=== PATIENT | male | born 1980 | race Caucasian/White ===

== ENCOUNTER 2017-04-11 08:30 | Emergency (ER) | payer SELFPAY ==
[2017-04-11 08:48] VITALS: BP 120/80
--- NOTE | 2017-04-11 09:43 | EDM.PDOC ---
ED HPI GENERAL MEDICAL PROBLEM - General Chief Complaint: General Stated Complaint: FLU/BODY ACHES/HEADACHE/CHILLS Time Seen by Provider: 04/11/17 09:25 Source of Information: Reports: Patient History Limitations: Reports: No Limitations - History of Present Illness INITIAL COMMENTS - FREE TEXT/NARRATIVE: Has been having body aches and fevers for several days. "My whole body hurts all over" No vomiting or diarrhea noted. Has been trying to drink fluids. has tested positive for influenza A this morning. Onset: Gradual Duration: Getting Worse Location: Reports: Generalized Quality: Reports: Ache Associated Symptoms: Reports: Cough, Loss of Appetite, Weakness. Denies: Nausea /Vomiting, Shortness of Breath Generalized Pain Score (Numeric/FACES): 8 - Related Data Allergies Allergy/AdvReac Type Severity Reaction Status Date / Time No Known Allergies Allergy Verified 04/11/17 08:49 Home Meds: Home Meds . [No Known Home Meds] 04/11/17 [History] Past Medical History - Past Health History Medical/Surgical History: Denies Medical/Surgical History HEENT History: Reports: None Cardiovascular History: Reports: None Respiratory History: Reports: None Musculoskeletal History: Reports: Other (See Below) Other Musculoskeletal History: Chronic bilateral shoulder pain-Treatment Olman Sparrow PA-C Neurological History: Reports: None Psychiatric History: Reports: None Dermatologic History: Reports: None Social & Family History - Tobacco Use Smoking Status *Q: Current Every Day Smoker Years of Tobacco use: 20 Packs/Tins Daily: 0.5 - Caffeine Use Caffeine Use: Reports: Soda - Recreational Drug Use Recreational Drug Use: No ED ROS GENERAL - Review of Systems Review Of Systems: See Below Constitutional: Reports: Fever, Chills, Weakness, Diaphoresis HEENT: Reports: No Symptoms Respiratory: Reports: Cough. Denies: Shortness of Breath Cardiovascular: Reports: No Symptoms GI/Abdominal: Denies: Abdominal Pain, Diarrhea, Nausea, Vomiting : Reports: No Symptoms Musculoskeletal: Reports: Back Pain, Muscle Stiffness Skin: Reports: No Symptoms ED EXAM, GENERAL - Physical Exam Exam: See Below Exam Limited By: No Limitations General Appearance: Alert, Moderate Distress Eye Exam: Bilateral Eye: PERRL Ears: Normal External Exam, Normal Canal, Normal TMs Nose: Normal Inspection Throat/Mouth: Normal Inspection, Normal Oropharynx, Normal Voice Head: Atraumatic, Normocephalic Neck: Normal Inspection, Supple, Non-Tender, Full Range of Motion Respiratory/Chest: No Respiratory Distress, Lungs Clear, Normal Breath Sounds, Chest Non-Tender Cardiovascular: Regular Rate, Rhythm, No Edema GI/Abdominal: Normal Bowel Sounds, Soft, Non-Tender, No Organomegaly Back Exam: Normal Inspection, Full Range of Motion Extremities: Normal Range of Motion, Non-Tender, Normal Capillary Refill Neurological: Alert, Oriented Skin Exam: Warm, Dry, Intact Course - Vital Signs Last Recorded V/S: Last Vital Signs Temp 99.1 F 04/11/17 08:35 Pulse 105 H 04/11/17 08:35 Resp 20 04/11/17 08:35 BP 120/80 04/11/17 08:35 Pulse Ox 98 04/11/17 08:35 Departure - Departure Time of Disposition: 09:41 Disposition: Home, Self-Care 01 Condition: Good Clinical Impression: Exposure to influenza - Discharge Information Referrals: PCP,None [Primary Care Provider] - Forms: ED Department Discharge Additional Instructions: Push fluids as much as possible Tylenol alternating with advil as needed for fever or chills or body aches Tamiflu 75 mg twice a day for 5 days - Problem List & Annotations (1) Exposure to influenza SNOMED Code(s): 254677753 Code(s): Z20.828 - CONTACT W AND EXPOSURE TO OTH VIRAL COMMUNICABLE DISEASES Status: Acute Priority: High Current Visit: Yes - Problem List Review Problem List Initiated/Reviewed/Updated: Yes
== END 2017-04-11 09:50 | disposition home or self-care (01) ==
LOC: CC.ED 08:30
DX: Z20.828 Contact with and (suspected) exposure to other viral communicable diseases (principal); F17.210 Nicotine dependence, cigarettes, uncomplicated
CPT/HCPCS: 87804; 99283

== ENCOUNTER 2018-03-11 10:11 | Emergency (ER) | payer MEDICAID ==
[2018-03-11 10:29] VITALS: BP 138/89
[2018-03-11] MEDS ORDERED: Iopamidol 612 MG/ML 100 ML Bottle IVPUSH ONE (11:09)
[2018-03-11 11:30] LABS: CHLORIDE,CL 104 mEq/L (98-106); SODIUM,NA 141 mEq/L (136-145)
--- NOTE | 2018-03-11 12:57 | EDM.PDOC ---
ED HPI GENERAL MEDICAL PROBLEM - General Chief Complaint: Genitourinary Problem Stated Complaint: ?HERNIA Time Seen by Provider: 03/11/18 10:15 Source of Information: Reports: Patient History Limitations: Reports: No Limitations - History of Present Illness INITIAL COMMENTS - FREE TEXT/NARRATIVE: Junior is a 37 yo male who presents to the ED via private vehicle with complaints of abdominal/groin pain. He states he thinks he has a hernia. Initially symptoms started yesterday evening on his way home from work and lasted about 20 minutes and it went away. He states today he was getting out of the car and experienced 10/10 pain that started in his lower abdomen. States it radiated down into his left groin and into his perineum. States he was trying to walk in the grocery store and it seemed to make things worse. He admits if he sits still it subsides. States the pain comes in waves and when it does it is intense. Bowel movements have been normal with last one yesterday evening. Denies any constipation or diarrhea. States no urinary complaints initially. However, after reevaluation he does admit when he urinated for the urinalysis he had some discomfort and now feels as if he is sitting on a tennis ball. Left Groin Pain Score (Numeric/FACES): 10 - Related Data Allergies Allergy/AdvReac Type Severity Reaction Status Date / Time No Known Allergies Allergy Verified 03/11/18 10:22 Home Meds: Home Meds Acetaminophen [Tylenol Arthritis] 2 tab PO TID PRN 03/11/18 [History] Naproxen Sodium [Aleve] 220 mg PO DAILY PRN 03/11/18 [History] Ranitidine HCl [Zantac 75] 75 mg PO BID 03/11/18 [History] Past Medical History - Past Health History Medical/Surgical History: Denies Medical/Surgical History HEENT History: Reports: None Cardiovascular History: Reports: None Respiratory History: Reports: None Genitourinary History: Reports: Other (See Below) Other Genitourinary History: hx of Hernia Musculoskeletal History: Reports: Other (See Below) Other Musculoskeletal History: Chronic bilateral shoulder pain-Treatment Olman Sparrow PA-C Neurological History: Reports: None Psychiatric History: Reports: None Endocrine/Metabolic History: Reports: None Dermatologic History: Reports: None - Infectious Disease History Infectious Disease History: Reports: None - Past Surgical History Endocrine Surgical History: Reports: None Social & Family History - Family History Family Medical History: Noncontributory - Tobacco Use Smoking Status *Q: Current Every Day Smoker Years of Tobacco use: 25 Packs/Tins Daily: 0.5 - Caffeine Use Caffeine Use: Reports: Soda - Recreational Drug Use Recreational Drug Use: No ED ROS GENERAL - Review of Systems Review Of Systems: See Below Constitutional: Denies: Fever, Chills, Decreased Appetite HEENT: Reports: No Symptoms Respiratory: Reports: No Symptoms Cardiovascular: Reports: No Symptoms GI/Abdominal: Reports: Abdominal Pain. Denies: Bloody Stool, Constipation, Diarrhea, Decreased Appetite, Melena, Nausea, Vomiting : Denies: Discharge, Dysuria, Flank Pain, Urgency Skin: Reports: No Symptoms ED EXAM, GI/ABD - Physical Exam Exam: See Below Exam Limited By: No Limitations General Appearance: Alert, No Apparent Distress Ears: Normal External Exam, Hearing Grossly Normal Nose: Normal Inspection, No Blood Throat/Mouth: Normal Inspection, Normal Voice, No Airway Compromise Head: Atraumatic, Normocephalic Neck: Normal Inspection Respiratory/Chest: No Respiratory Distress, Lungs Clear, Normal Breath Sounds, No Accessory Muscle Use Cardiovascular: Regular Rate, Rhythm, No Murmur GI/Abdominal Exam: Normal Bowel Sounds, Soft, No Organomegaly, No Distention, No Mass, Tender (Male) Exam: Circumcised, Other (Patient refused prostate exam. ). No: Scrotum Tenderness (L), Scrotum Tenderness (R), Testicular Tenderness (L), Testicular Tenderness (R) Rectal (Males) Exam: Deferred (per patient ) Back Exam: No: CVA Tenderness (L), CVA Tenderness (R) Neurological: Alert, Oriented, Normal Cognition Psychiatric: Normal Affect, Normal Mood Skin Exam: Warm, Dry, Intact, Normal Color, No Rash Course - Vital Signs Last Recorded V/S: Last Vital Signs Temp 96.4 F 03/11/18 10:25 Pulse 95 03/11/18 10:25 Resp 20 03/11/18 10:25 BP 138/89 03/11/18 10:25 Pulse Ox 100 03/11/18 10:25 - Orders/Labs/Meds Orders: Active Orders 24 hr Category Date Time Status Abdomen Pelvis w Cont [CT] Stat Exams 03/11/18 11:03 Taken Labs: Laboratory Tests 03/11/18 03/11/18 03/11/18 Range/Units 11:03 11:03 11:10 WBC 7.4 (5.0-10.0) 10^3/uL RBC 5.19 (4.50-6.00) 10^6/uL Hgb 13.8 L (14.0-18.0) g/dL Hct 42.2 (40.0-54.0) % MCV 81.3 L (82.0-94.0) fL MCH 26.6 L (27.0-32.0) pg MCHC 32.7 L (33.0-38.0) g/dL RDW Coeff of Christine 13.6 (11.0-15.0) % Plt Count 218 (150-400) 10^3/uL Neut % (Auto) 55.4 (35-85) % Lymph % (Auto) 31.3 (10-55) % [place] % (Auto) 7.7 (0-16) % Eos % (Auto) 5.2 H (0-5) % Baso % (Auto) 0.4 (0-3) % Neut # (Auto) 4.08 (1.80-7.00) 10^3/uL Lymph # (Auto) 2.31 (1.00-4.80) 10^3/uL [place] # (Auto) 0.57 (0.00-0.80) 10^3/uL Eos # (Auto) 0.38 (0.00-0.45) 10^3/uL Baso # (Auto) 0.03 10^3/uL Sodium 141 (136-145) mEq/L Potassium 4.1 (3.5-5.0) mEq/L Chloride 104 (98-106) mEq/L Carbon Dioxide 28 (21-32) mmol/L BUN 20 H (7-18) mg/dL Creatinine 1.0 (0.7-1.3) mg/dL Est Cr Clr Drug Dosing 95.95 mL/min Estimated GFR (MDRD) > 60 (>=60) mL/min Glucose 102 H (75-99) mg/dL Calcium 9.2 (8.4-10.1) mg/dL Total Bilirubin 0.3 (0.0-1.0) mg/dL AST 26 (15-37) U/L ALT 48 (12-78) U/L Alkaline Phosphatase 80 (46-116) U/L C-Reactive Protein < 0.2 L (0.2-0.8) mg/dL Total Protein 7.8 (6.4-8.2) g/dL Albumin 4.1 (3.4-5.0) g/dL Urine Color Yellow (YELLOW) Urine Appearance Clear (CLEAR) Urine pH 5.5 (4.5-8.0) Ur Specific Peck >= 1.030 H (1.003-1.020) Urine Protein Negative (NEGATIVE) mg/dL Urine Glucose (UA) Negative (NEGATIVE) mg/dL Urine Ketones Negative (NEGATIVE) mg/dL Urine Occult Blood Negative (NEGATIVE) Urine Nitrite Negative (NEGATIVE) Urine Bilirubin Negative (NEGATIVE) Urine Urobilinogen 0.2 (0.2-1.0) EU/dL Ur Leukocyte Esterase Negative (NEGATIVE) Urine RBC Not seen (0-5) /HPF Urine WBC 0-5 (0-5) /HPF Urine Bacteria Occasional H (NOT SEEN) /HPF Urine Mucus Few H (NOT SEEN) /HPF Meds: Medications Discontinued Medications Generic Name Dose Route Start Last Admin Trade Name Freq PRN Reason Stop Dose Admin Iopamidol 100 ml 03/11/18 11:09 Isovue-300 (61%) IVPUSH 03/11/18 11:10 ONETIME ONE Departure - Departure Time of Disposition: 13:00 Disposition: Home, Self-Care 01 Clinical Impression: Prostatitis - Discharge Information Instructions: Prostatitis, [id number] Referrals: PCP,None [Primary Care Provider] - Additional Instructions: 1) Will treat for prostatitis, Cipro 500mg twice a day for 14 days 2) Toradol 10mg every 8 hours as needed for discomfort 3) Push fluids 4) Recommend follow up in clinic after finishing antibiotic, if any worsening of symptoms, return sooner for reevaluation. 5) CT of the abdomen/pelvis showed no acute findings. However, large hiatal hernia noted (which is the cause of the reflux). Discuss treatment options with primary provider. 6) Medications called into [facility]. - Problem List & Annotations (1) Prostatitis SNOMED Code(s): 5482564 Code(s): N41.9 - INFLAMMATORY DISEASE OF PROSTATE, UNSPECIFIED Status: Acute Current Visit: Yes - My Orders Last 24 Hours: My Active Orders 03/11/18 11:03 Abdomen Pelvis w Cont [CT] Stat - Assessment/Plan Last 24 Hours: My Active Orders 03/11/18 11:03 Abdomen Pelvis w Cont [CT] Stat Plan: See additional instructions for details.
== END 2018-03-11 13:10 | disposition home or self-care (01) ==
LOC: CC.ED 10:11
DX: N41.9 Inflammatory disease of prostate, unspecified (principal); F17.210 Nicotine dependence, cigarettes, uncomplicated
CPT/HCPCS: 36415; 74177; 80053; 81001; 85025; 86140; 99284; Q9967

== ENCOUNTER 2020-10-27 06:11 | Emergency (ER) | payer MEDICAID ==
[2020-10-27 06:56] LABS: CHLORIDE,CL 100 mEq/L (98-106); SODIUM,NA 139 mEq/L (136-145)
--- NOTE | 2020-10-27 07:08 | EDM.PDOC ---
ED HPI GENERAL MEDICAL PROBLEM - General Chief Complaint: Back Pain or Injury Stated Complaint: back pain Time Seen by Provider: 10/27/20 06:40 Source of Information: Reports: Patient History Limitations: Reports: No Limitations - History of Present Illness INITIAL COMMENTS - FREE TEXT/NARRATIVE: Junior is a 40 year old male who presents to the ED with c/o right mid-upper posterior and anterior back pain. He reports pain started yesterday and has been constant since then. He reports he was unable to sleep through the night due to the pain, prompting presentation to the ED. He denies any SOB but does report pain is worsened by deep breathing and lying down. He denies any recent cold or cough. Denies any injury to the area. No other assiciated symptoms. Denies any known history of covid, but has never been tested for Covid. Onset Date: 10/26/20 Duration: Constant, Getting Worse Location: Reports: Chest, Back Quality: Reports: Sharp, Throbbing Severity: Moderate Improves with: Reports: None Worsens with: Reports: Breathing, Other (Lying flat) Associated Symptoms: Reports: No Other Symptoms. Denies: Confusion, Chest Pain, Cough, cough w sputum, Diaphoresis, Fever/Chills, Headaches, Loss of Appetite, Malaise, Nausea/Vomiting, Rash, Seizure, Shortness of Breath, Syncope, Weakness Treatments CHIP SEPARATOR: Reports: Acetaminophen, NSAIDS Middle Back Pain Score (Numeric/FACES): 6 - Related Data Allergies Allergy/AdvReac Type Severity Reaction Status Date / Time No Known Allergies Allergy Verified 10/27/20 06:15 Home Meds: Home Meds Acetaminophen [Tylenol Arthritis] 2 tab PO TID PRN 03/11/18 [History] Naproxen Sodium [Aleve] 220 mg PO DAILY PRN 03/11/18 [History] Acetaminophen/HYDROcodone [[place] 325-5 MG] 1 tab PO Q4H PRN #15 tab 10/27/20 [Rx] Apixaban [Eliquis] 5 mg PO BID #194 tablet 10/27/20 [Rx] Past Medical History - Past Health History Medical/Surgical History: Denies Medical/Surgical History HEENT History: Reports: None Cardiovascular History: Reports: None Respiratory History: Reports: None Genitourinary History: Reports: Other (See Below) Other Genitourinary History: hx of Hernia Musculoskeletal History: Reports: Other (See Below) Other Musculoskeletal History: Chronic bilateral shoulder pain-Treatment Olman Sparrow PA-C Neurological History: Reports: None Psychiatric History: Reports: None Endocrine/Metabolic History: Reports: None Dermatologic History: Reports: None - Infectious Disease History Infectious Disease History: Reports: None - Past Surgical History Endocrine Surgical History: Reports: None Social & Family History - Family History Family Medical History: No Pertinent Family History - Tobacco Use Tobacco Use Status *Q: Current Every Day Tobacco User Years of Tobacco use: 20 Packs/Tins Daily: 0.5 - Caffeine Use Caffeine Use: Reports: Coffee, Soda - Recreational Drug Use Recreational Drug Use: No ED ROS GENERAL - Review of Systems Review Of Systems: Comprehensive ROS is negative, except as noted in HPI. ED EXAM, UPPER BACK/NECK PAIN - Physical Exam Exam: See Below Exam Limited By: No Limitations General Appearance: Alert, WD/WN, No Apparent Distress Head Exam: Atraumatic, Normocephalic Neck Exam: Non-Tender, Full Range of Motion, Normal Alignment, Normal Inspection Cardiovascular/Respiratory: Regular Rate, Rhythm, No M/R/G, Normal Peripheral Pulses, No JVD, Normal Breath Sounds, No Respiratory Distress GI/Abdominal: Normal Bowel Sounds, Soft, Non-Tender, No Organomegaly, No Distention, No Abnormal Bruit, No Mass Back Exam: Normal Inspection, Full Range of Motion. No: CVA Tenderness (L), CVA Tenderness (R) Extremities: Normal Inspection, Normal Range of Motion, Non-Tender, No Pedal Edema, Normal Capillary Refill Neurologic: kiln mechanic II-XII nml As Tested, No Motor/Sensory Deficits, Alert, Normal Mood/Affect, Oriented x 3 Psychiatric: Normal Affect, Normal Mood Skin Exam: Normal Color, Warm/Dry Lymphatic: No Adenopathy Course - Vital Signs Last Recorded V/S: Last Vital Signs Temp 98.6 F 10/27/20 09:09 Pulse 112 H 10/27/20 09:09 Resp 20 10/27/20 09:09 BP 128/65 10/27/20 09:09 Pulse Ox 97 10/27/20 09:09 - Orders/Labs/Meds Orders: Active Orders 24 hr Category Date Time Status Abdomen 2V AP Flat Upright [CR] Stat Exams 10/27/20 07:08 Taken Chest 2V [CR] Stat Exams 10/27/20 06:19 Taken Chest PE [Ang Chest] [CT] Stat Exams 10/27/20 07:08 Taken Labs: Laboratory Tests 10/27/20 10/27/20 10/27/20 Range/Units 06:30 06:30 06:30 WBC 10.9 (4.0-11.0) 10^3/uL RBC 4.89 (4.50-6.00) x10^6/uL Hgb 10.2 L (14.0-18.0) g/dL Hct 34.1 L (42.0-52.0) % MCV 69.7 L (83.0-97.0) fL MCH 20.9 L (27.0-32.0) pg MCHC 29.9 L (32.0-36.0) g/dL RDW Coeff of Christine 15.7 H (11.0-15.0) % Plt Count 314 (150-400) 10^3/uL Immature Gran % (Auto) 0.2 (0.0-4.9) % Neut % (Auto) 71.1 H (41-71) % Lymph % (Auto) 15.8 L (24-44) % [place] % (Auto) 9.9 (0-10) % Eos % (Auto) 2.7 (0-6) % Baso % (Auto) 0.3 (0-1) % Neut # (Auto) 7.72 (1.80-8.00) x10^3/uL Lymph # (Auto) 1.72 (0.60-5.00) 10^3/uL [place] # (Auto) 1.08 (0.00-1.50) 10^3/uL Eos # (Auto) 0.29 (0.00-1.50) 10^3/uL Baso # (Auto) 0.03 (0.00-0.50) 10^3/uL Immature Gran # (Auto) 0.02 (0.00-0.49) 10^3/uL D-Dimer, Quantitative 1.25 H (0.00-0.50) Sodium 139 (136-145) mEq/L Potassium 4.3 (3.5-5.0) mEq/L Chloride 100 (98-106) mEq/L Carbon Dioxide 28 (21-32) mmol/L BUN 13 (7-18) mg/dL Creatinine 1.0 (0.7-1.3) mg/dL Est Cr Clr Drug Dosing 93.10 mL/min Estimated GFR (MDRD) > 60 (>=60) mL/min Glucose 111 H (75-99) mg/dL Calcium 8.8 (8.4-10.1) mg/dL Total Bilirubin 0.4 (0.0-1.0) mg/dL AST 30 (15-37) U/L ALT 64 (12-78) U/L Alkaline Phosphatase 78 (46-116) U/L C-Reactive Protein 4.5 H (0.2-0.8) mg/dL Total Protein 7.3 (6.4-8.2) g/dL Albumin 3.5 (3.4-5.0) g/dL Urine Color (YELLOW) Urine Appearance (CLEAR) Urine pH (4.5-8.0) Ur Specific Lynn (1.003-1.020) Urine Protein (NEGATIVE) mg/dL Urine Glucose (UA) (NEGATIVE) mg/dL Urine Ketones (NEGATIVE) mg/dL Urine Occult Blood (NEGATIVE) Urine Nitrite (NEGATIVE) Urine Bilirubin (NEGATIVE) Urine Urobilinogen (0.2-1.0) EU/dL Ur Leukocyte Esterase (NEGATIVE) SARS CoV-2 RNA Rapid FRANCISCO (NEGATIVE) 10/27/20 10/27/20 Range/Units 06:30 06:30 WBC (4.0-11.0) 10^3/uL RBC (4.50-6.00) x10^6/uL Hgb (14.0-18.0) g/dL Hct (42.0-52.0) % MCV (83.0-97.0) fL MCH (27.0-32.0) pg MCHC (32.0-36.0) g/dL RDW Coeff of Christine (11.0-15.0) % Plt Count (150-400) 10^3/uL Immature Gran % (Auto) (0.0-4.9) % Neut % (Auto) (41-71) % Lymph % (Auto) (24-44) % [place] % (Auto) (0-10) % Eos % (Auto) (0-6) % Baso % (Auto) (0-1) % Neut # (Auto) (1.80-8.00) x10^3/uL Lymph # (Auto) (0.60-5.00) 10^3/uL Ulster # (Auto) (0.00-1.50) 10^3/uL Eos # (Auto) (0.00-1.50) 10^3/uL Baso # (Auto) (0.00-0.50) 10^3/uL Immature Gran # (Auto) (0.00-0.49) 10^3/uL D-Dimer, Quantitative (0.00-0.50) Sodium (136-145) mEq/L Potassium (3.5-5.0) mEq/L Chloride (98-106) mEq/L Carbon Dioxide (21-32) mmol/L BUN (7-18) mg/dL Creatinine (0.7-1.3) mg/dL Est Cr Clr Drug Dosing mL/min Estimated GFR (MDRD) (>=60) mL/min Glucose (75-99) mg/dL Calcium (8.4-10.1) mg/dL Total Bilirubin (0.0-1.0) mg/dL AST (15-37) U/L ALT (12-78) U/L Alkaline Phosphatase (46-116) U/L C-Reactive Protein (0.2-0.8) mg/dL Total Protein (6.4-8.2) g/dL Albumin (3.4-5.0) g/dL Urine Color Yellow (YELLOW) Urine Appearance Clear (CLEAR) Urine pH 6.0 (4.5-8.0) Ur Specific Lynn 1.020 (1.003-1.020) Urine Protein Negative (NEGATIVE) mg/dL Urine Glucose (UA) Negative (NEGATIVE) mg/dL Urine Ketones Negative (NEGATIVE) mg/dL Urine Occult Blood Negative (NEGATIVE) Urine Nitrite Negative (NEGATIVE) Urine Bilirubin Negative (NEGATIVE) Urine Urobilinogen 0.2 (0.2-1.0) EU/dL Ur Leukocyte Esterase Negative (NEGATIVE) SARS CoV-2 RNA Rapid FRANCISCO Negative (NEGATIVE) Meds: Medications Discontinued Medications Generic Name Dose Route Start Last Admin Trade Name Freq PRN Reason Stop Dose Admin Hydromorphone HCl 1 mg 10/27/20 09:02 10/27/20 09:11 Hydromorphone 1 Mg/Ml Syringe IVPUSH 10/27/20 09:03 1 mg ONETIME ONE Administration Iopamidol 100 ml 10/27/20 07:12 10/27/20 07:46 Iopamidol 755 Mg/Ml 100 Ml Bottle IVPUSH 10/27/20 07:13 100 ml ONETIME ONE Administration - Re-Assessments/Exams Free Text/Narrative Re-Assessment/Exam: Labs stable except D-dimer is elevated. Proceed with chest CTA. Chest CTA does reveal acute PE with occlusive thrombus within the right middle lobar and segmental arteries and a right lower segmental artery. No evidence of right heart strain. Patient c/o increased pain at this time. Will give 1 mg D ilaudid. Discussed PE and recommended treatment. Patient opts to treat with Eliquis. Departure - Departure Time of Disposition: : Disposition: Home, Self-Care 01 Condition: Fair Clinical Impression: Pulmonary emboli Qualifiers: Pulmonary embolism type: multiple subsegmental (without acute cor pulmonale) Qualified Code(s): I26.94 - Multiple subsegmental pulmonary emboli without acute cor pulmonale - Discharge Information *PRESCRIPTION DRUG MONITORING PROGRAM REVIEWED*: Yes *COPY OF PRESCRIPTION DRUG MONITORING REPORT IN PATIENT SUSANA: Yes Prescriptions: Apixaban [Eliquis] 5 mg PO BID #194 tablet Acetaminophen/HYDROcodone [[place] 325-5 MG] 1 tab PO Q4H PRN #15 tab PRN Reason: Pain Instructions: Pulmonary Embolism Referrals: Lynda Sparrow PA-C [Primary Care Provider] - Forms: ED Department Discharge Additional Instructions: - Start Eliquis 10 mg twice daily x 7 days then reduce to 5 mg twice daily for total of 3 months - This is a blood thinner so you may notice that you bruise and bleed easier - Recommend you avoid NSAIDs (ibuprofen, Aleve, naproxen, meloxicam) while on Eliquis as this can increase bleeding risk - [place] 1 tablet every 4 hours as needed for pain - Pain should improve over the next 2-3 days - Encourage smoking cessation - Recommend follow up for reevaluation if you develop any difficulty breathing or worsening shortness of breath - Return to ED For any emergent needs - Recommend follow up with PCP in 1 week for recheck, sooner if any issues/concerns Sepsis Event Note (ED) - Evaluation Sepsis Screening Result: No Definite Risk - Focused Exam Vital Signs: Vital Signs Temp Pulse Resp BP Pulse Ox 10/27/20 09:09 98.6 F 112 H 20 128/65 97 10/27/20 06:12 98.3 F 109 H 18 139/83 98 - Problem List & Annotations (1) Pulmonary emboli SNOMED Code(s): 73319643 Code(s): I26.99 - OTHER PULMONARY EMBOLISM WITHOUT ACUTE COR PULMONALE Status: Acute Qualifiers: Pulmonary embolism type: multiple subsegmental (without acute cor pulmonale) Qualified Code(s): I26.94 - Multiple subsegmental pulmonary emboli without acute cor pulmonale - Problem List Review Problem List Initiated/Reviewed/Updated: Yes - My Orders Last 24 Hours: My Active Orders 10/27/20 06:19 Chest 2V [CR] Stat 10/27/20 07:08 Abdomen 2V AP Flat Upright [CR] Stat Chest PE [Ang Chest] [CT] Stat - Assessment/Plan Last 24 Hours: My Active Orders 10/27/20 06:19 Chest 2V [CR] Stat 10/27/20 07:08 Abdomen 2V AP Flat Upright [CR] Stat Chest PE [Ang Chest] [CT] Stat Assessment:: Multiple right pulmonary emboli, lobar and segmental arteries Plan: 40 yo male presents with right sided mid back/chest pain and c/o pleurisy. Lab work stable except D-dimer elevated to 1.25. Opted to proceed with CTA chest. CTA chest reveals acute pulmonary emboli with occlusive thrombus within the right middle lobar and segmental arteries and a right lower segmental artery. Discussed different options for anticoagulation with patient. Opts to proceed with Eliquis. Discussed risks vs. benefits of treatment and risks of being on anticoagulant. Strongly recommended smoking cessation. Patient is slightly tachycardia but O2 sat stable on RA. Patient did have c/o pain. Was given 1 mg dilaudid, which did improve pain. Patient will be discharged home on Eliquis and [place] as needed for pain. He is advised to follow up with his PCP in 1 week for recheck. He is advised to return to ED sooner for any worsening symptoms, shortness of breath or difficulty breathing. Patient verbalized understanding and was agreeable with plan of care. Discharged from facility in satisfactory condition.
[2020-10-27] MEDS: Iopamidol 755 Mg/ML 100 ML Bottle IVPUSH ONE (07:46)
[2020-10-27 09:10] VITALS: BP 128/65; PULSE 112
[2020-10-27] MEDS: HYDROmorphone 1 MG/ML Syringe IVPUSH ONE (09:11)
== END 2020-10-27 10:30 | disposition home or self-care (01) ==
LOC: CC.ED 06:11
DX: I26.94 Multiple subsegmental thrombotic pulmonary emboli without acute cor pulmonale (principal); Z20.822 Contact with and (suspected) exposure to COVID-19; Z72.0 Tobacco use; Z79.01 Long term (current) use of anticoagulants
CPT/HCPCS: 36415; 71046; 71275; 74019; 80053; 81003; 85025; 85379; 86140; 87635; 93005; 96374; 99284; J1170; Q9967; U0002

== ENCOUNTER 2020-10-28 04:07 | Observation (INO) | payer MEDICAID ==
[2020-10-28 04:43] LABS: CHLORIDE,CL 100 mEq/L (98-106); SODIUM,NA 137 mEq/L (136-145)
[2020-10-28 04:44] LABS: PTT,PARTIAL THROMBOPLSTIN TIME 25.7 SEC (23.2-32.3)
[2020-10-28] MEDS ORDERED: Morphine 4 MG/ML VIAL IVPUSH ONE ×2 (04:44→06:13)
[2020-10-28] MEDS ORDERED: Ondansetron 4 MG/2 ML SDV IVPUSH STA (04:44)
[2020-10-28] MEDS ORDERED: Sodium Chloride 0.9% 1,000 ML IV ONE (04:47)
--- NOTE | 2020-10-28 04:53 | EDM.PDOC ---
ED HPI GENERAL MEDICAL PROBLEM - General Chief Complaint: Chest Pain Stated Complaint: R rib/back pain Time Seen by Provider: 10/28/20 04:23 Source of Information: Reports: Patient History Limitations: Reports: No Limitations - History of Present Illness INITIAL COMMENTS - FREE TEXT/NARRATIVE: This patient is a 40 year old male that presents to the ER. Patient reports that he started 2 days ago with right sided back pain without injury. Patient reports that the pain became worse with time until he was seen in the ER yesterday morning. Patient reports that yesterday morning he also started having mild RUQ abd pain. Patient had abd xray that was unremarkable. He had a CTA chest showing an acute PE. Patient received Dilaudid in ER, started on Eliquis, discharged home. Patient reports that after returning home, after 2 hours his pain returned and has gotten worse since. He reports that the pain is worse with taking big deep breaths, or ambulating. Patient reports that his RUQ abdominal pain has become worse. He reports having an increase in his shortness of breath. He denies alexander, dizziness, n, v, d, f, syncope, urinary/bowel changes. Patient reports the pain is constant, but waxes and wanes. Onset Date: 10/26/20 Duration: Hour(s): (36), Getting Worse (since 2 hours after leaving ER yesterday) Location: Reports: Chest, Abdomen Quality: Reports: Sharp, Stabbing Severity: Severe Improves with: Reports: Rest Worsens with: Reports: Other (taking big deep breaths), Movement Associated Symptoms: Reports: Chest Pain, Shortness of Breath. Denies: Confusion, Cough, cough w sputum, Diaphoresis, Fever/Chills, Headaches, Loss of Appetite, Malaise, Nausea/Vomiting, Rash, Seizure, Syncope, Weakness Right Back Pain Score (Numeric/FACES): 10 - Related Data Allergies Allergy/AdvReac Type Severity Reaction Status Date / Time No Known Allergies Allergy Verified 10/28/20 04:08 Home Meds: Home Meds Acetaminophen [Tylenol Arthritis] 2 tab PO TID PRN 03/11/18 [History] Naproxen Sodium [Aleve] 220 mg PO DAILY PRN 03/11/18 [History] Acetaminophen/HYDROcodone [[place] 325-5 MG] 1 tab PO Q4H PRN #15 tab 10/27/20 [Rx] Apixaban [Eliquis] 5 mg PO BID #194 tablet 10/27/20 [Rx] Past Medical History - Past Health History Medical/Surgical History: Denies Medical/Surgical History HEENT History: Reports: None Cardiovascular History: Reports: None Respiratory History: Reports: None Genitourinary History: Reports: Other (See Below) Other Genitourinary History: hx of Hernia Musculoskeletal History: Reports: Other (See Below) Other Musculoskeletal History: Chronic bilateral shoulder pain-Treatment Olman Sparrow PA-C Neurological History: Reports: None Psychiatric History: Reports: None Endocrine/Metabolic History: Reports: None Dermatologic History: Reports: None - Infectious Disease History Infectious Disease History: Reports: None - Past Surgical History Endocrine Surgical History: Reports: None Social & Family History - Family History Family Medical History: No Pertinent Family History - Tobacco Use Tobacco Use Status *Q: Current Every Day Tobacco User Years of Tobacco use: 20 Packs/Tins Daily: 0.5 - Caffeine Use Caffeine Use: Reports: Coffee, Soda - Recreational Drug Use Recreational Drug Use: No ED ROS GENERAL - Review of Systems Review Of Systems: See Below Constitutional: Reports: No Symptoms HEENT: Reports: No Symptoms Respiratory: Reports: Shortness of Breath, Pleuritic Chest Pain. Denies: Wheezing, Cough, Sputum, Hemoptysis Cardiovascular: Reports: Chest Pain, Dyspnea on Exertion. Denies: Lightheadedness, Palpitations, Syncope Endocrine: Reports: No Symptoms GI/Abdominal: Reports: Abdominal Pain. Denies: Black Stool, Bloody Stool, Diarrhea, Nausea, Vomiting : Reports: No Symptoms. Denies: Dysuria, Flank Pain, Hematuria, Pain Musculoskeletal: Reports: Back Pain Skin: Reports: No Symptoms Neurological: Reports: No Symptoms Psychiatric: Reports: No Symptoms Hematologic/Lymphatic: Reports: No Symptoms Immunologic: Reports: No Symptoms ED EXAM, GI/ABD - Physical Exam Exam: See Below Exam Limited By: No Limitations General Appearance: Alert, WD/WN, No Apparent Distress, Anxious Eyes: Bilateral: Normal Appearance Ears: Normal External Exam, Normal Canal, Hearing Grossly Normal, Normal TMs Nose: Normal Inspection, Normal Mucosa, No Blood Throat/Mouth: Normal Inspection, Normal Lips, Normal Gums, Normal Oropharynx, Normal Voice, No Airway Compromise, Other (dental decay) Head: Atraumatic, Normocephalic Neck: Normal Inspection, Supple, Non-Tender, Full Range of Motion Respiratory/Chest: No Respiratory Distress, Lungs Clear, Normal Breath Sounds, No Accessory Muscle Use, Chest Non-Tender Cardiovascular: Normal Peripheral Pulses, No JVD, No Murmur, No Rub, Tachycardia (104 on exam) GI/Abdominal Exam: Normal Bowel Sounds, Soft, No Organomegaly, No Distention, No Abnormal Bruit, No Mass, Pelvis Stable, Tender (RUQ). No: Guarding, Rigid, Hue ound (Male) Exam: Deferred Rectal (Males) Exam: Deferred Back Exam: Normal Inspection, Full Range of Motion. No: CVA Tenderness (L), CVA Tenderness (R) Extremities: Normal Inspection, Normal Range of Motion, Non-Tender, No Pedal Edema, Normal Capillary Refill Neurological: Alert, Oriented, Normal Cognition, Normal Gait, No Motor/Sensory Deficits Psychiatric: Anxious Skin Exam: Warm, Dry, Intact, Normal Color, No Rash Lymphatic: No Adenopathy #1 Interpretation EKG Date: 10/28/20 Time: 03:52 Rate (Beats/Min): 101 QRS: Normal ST-T: Normal QT: Normal Course - Vital Signs Last Recorded V/S: Last Vital Signs Temp 98.8 F 10/28/20 16:00 Pulse 106 H 10/28/20 16:00 Resp 18 10/28/20 16:00 BP 124/69 10/28/20 16:00 Pulse Ox 95 10/28/20 16:00 - Orders/Labs/Meds Orders: Active Orders 24 hr Category Date Time Status Abdomen Pelvis w Cont [CT] Stat Exams 10/28/20 04:57 Taken Ang Chest [CT] Stat Exams 10/28/20 04:59 Taken Medication Orders Acetaminophen (Acetaminophen 325 Mg Tab) 650 mg PO Q4H PRN PRN Reason: Pain (Mild 1-3)/fever Apixaban (Apixaban 5 Mg TabOwn Med) 10 mg PO BID [facility] Last Admin: 10/28/20 10:04 Dose: 10 mg Documented by: ZEB Guaifenesin/Codeine Phosphate (Codeine/Guaifenesin 10-100 Mg/5 Ml Syrup 5 Ml Cup) 5 ml PO Q6H [facility] Last Admin: 10/28/20 16:00 Dose: 5 ml Documented by: ZEB Morphine Sulfate (Morphine 2 Mg/Ml Syringe) 2 mg IVPUSH Q2H PRN PRN Reason: Pain (severe 7-10) Last Admin: 10/28/20 12:54 Dose: 2 mg Documented by: Admin: 10/28/20 10:10 Dose: 2 mg Documented by: ZEB Ondansetron HCl (Ondansetron 4 Mg/2 Ml Sdv) 4 mg IV Q6H PRN PRN Reason: Nausea/Vomiting Oxycodone HCl (Oxycodone 5 Mg Tab) 10 mg PO Q4H PRN PRN Reason: Pain (moderate 4-6) Last Admin: 10/28/20 08:46 Dose: 10 mg Documented by: ZEB Labs: Laboratory Tests 10/28/20 10/28/20 10/28/20 Range/Units 04:11 04:11 04:11 WBC 11.1 H (4.0-11.0) 10^3/uL RBC 4.25 L (4.50-6.00) x10^6/uL Hgb 8.9 L (14.0-18.0) g/dL Hct 30.1 L (42.0-52.0) % MCV 70.8 L (83.0-97.0) fL MCH 20.9 L (27.0-32.0) pg MCHC 29.6 L (32.0-36.0) g/dL RDW Coeff of Christine 15.7 H (11.0-15.0) % Plt Count 275 (150-400) 10^3/uL Immature Gran % (Auto) 0.2 (0.0-4.9) % Neut % (Auto) 70.1 (41-71) % Lymph % (Auto) 14.3 L (24-44) % [place] % (Auto) 13.3 H (0-10) % Eos % (Auto) 1.7 (0-6) % Baso % (Auto) 0.4 (0-1) % Neut # (Auto) 7.82 (1.80-8.00) x10^3/uL Lymph # (Auto) 1.59 (0.60-5.00) 10^3/uL [place] # (Auto) 1.48 (0.00-1.50) 10^3/uL Eos # (Auto) 0.19 (0.00-1.50) 10^3/uL Baso # (Auto) 0.04 (0.00-0.50) 10^3/uL Immature Gran # (Auto) 0.02 (0.00-0.49) 10^3/uL PT 10.3 (9.7-12.3) SEC INR 0.94 (0.92-1.18) APTT 25.7 (23.2-32.3) SEC Sodium 137 (136-145) mEq/L Potassium 4.4 (3.5-5.0) mEq/L Chloride 100 (98-106) mEq/L Carbon Dioxide 29 (21-32) mmol/L BUN 17 (7-18) mg/dL Creatinine 1.0 (0.7-1.3) mg/dL Est Cr Clr Drug Dosing 93.10 mL/min Estimated GFR (MDRD) > 60 (>=60) mL/min Glucose 121 H (75-99) mg/dL Lactic Acid (0.4-2.0) mmol/L Calcium 8.7 (8.4-10.1) mg/dL Magnesium 1.8 (1.8-2.4) mg/dL Total Bilirubin 0.3 (0.0-1.0) mg/dL AST 16 (15-37) U/L ALT 46 (12-78) U/L Alkaline Phosphatase 68 (46-116) U/L Lactate Dehydrogenase 145 (100-190) U/L Creatine Kinase 117 (35-232) U/L Troponin I < 0.017 (0.00-0.06) ng/mL C-Reactive Protein (0.2-0.8) mg/dL Total Protein 6.9 (6.4-8.2) g/dL Albumin 3.1 L (3.4-5.0) g/dL Lipase 34 L (73-393) U/L Urine Color (YELLOW) Urine Appearance (CLEAR) Urine pH (4.5-8.0) Ur Specific [place] (1.003-1.020) Urine Protein (NEGATIVE) mg/dL Urine Glucose (UA) (NEGATIVE) mg/dL Urine Ketones (NEGATIVE) mg/dL Urine Occult Blood (NEGATIVE) Urine Nitrite (NEGATIVE) Urine Bilirubin (NEGATIVE) Urine Urobilinogen (0.2-1.0) EU/dL Ur Leukocyte Esterase (NEGATIVE) Urine RBC (0-5) /HPF Urine WBC (0-5) /HPF Urine Mucus (NOT SEEN) /HPF 10/28/20 10/28/20 10/28/20 Range/Units 04:38 04:42 05:04 WBC (4.0-11.0) 10^3/uL RBC (4.50-6.00) x10^6/uL Hgb (14.0-18.0) g/dL Hct (42.0-52.0) % MCV (83.0-97.0) fL MCH (27.0-32.0) pg MCHC (32.0-36.0) g/dL RDW Coeff of Christine (11.0-15.0) % Plt Count (150-400) 10^3/uL Immature Gran % (Auto) (0.0-4.9) % Neut % (Auto) (41-71) % Lymph % (Auto) (24-44) % [place] % (Auto) (0-10) % Eos % (Auto) (0-6) % Baso % (Auto) (0-1) % Neut # (Auto) (1.80-8.00) x10^3/uL Lymph # (Auto) (0.60-5.00) 10^3/uL [place] # (Auto) (0.00-1.50) 10^3/uL Eos # (Auto) (0.00-1.50) 10^3/uL Baso # (Auto) (0.00-0.50) 10^3/uL Immature Gran # (Auto) (0.00-0.49) 10^3/uL PT (9.7-12.3) SEC INR (0.92-1.18) APTT (23.2-32.3) SEC Sodium (136-145) mEq/L Potassium (3.5-5.0) mEq/L Chloride (98-106) mEq/L Carbon Dioxide (21-32) mmol/L BUN (7-18) mg/dL Creatinine (0.7-1.3) mg/dL Est Cr Clr Drug Dosing mL/min Estimated GFR (MDRD) (>=60) mL/min Glucose (75-99) mg/dL Lactic Acid 1.4 (0.4-2.0) mmol/L Calcium (8.4-10.1) mg/dL Magnesium (1.8-2.4) mg/dL Total Bilirubin (0.0-1.0) mg/dL AST (15-37) U/L ALT (12-78) U/L Alkaline Phosphatase (46-116) U/L Lactate Dehydrogenase (100-190) U/L Creatine Kinase (35-232) U/L Troponin I (0.00-0.06) ng/mL C-Reactive Protein 9.9 H (0.2-0.8) mg/dL Total Protein (6.4-8.2) g/dL Albumin (3.4-5.0) g/dL Lipase (73-393) U/L Urine Color Dark yellow (YELLOW) Urine Appearance Clear (CLEAR) Urine pH 5.5 (4.5-8.0) Ur Specific [place] >= 1.030 H (1.003-1.020) Urine Protein 30 H (NEGATIVE) mg/dL Urine Glucose (UA) Negative (NEGATIVE) mg/dL Urine Ketones Negative (NEGATIVE) mg/dL Urine Occult Blood Negative (NEGATIVE) Urine Nitrite Negative (NEGATIVE) Urine Bilirubin Negative (NEGATIVE) Urine Urobilinogen 0.2 (0.2-1.0) EU/dL Ur Leukocyte Esterase Negative (NEGATIVE) Urine RBC 0-5 (0-5) /HPF Urine WBC 0-5 (0-5) /HPF Urine Mucus Many H (NOT SEEN) /HPF Meds: Medications Generic Name Dose Route Start Last Admin Trade Name Freq PRN Reason Stop Dose Admin Acetaminophen 650 mg 10/28/20 08:17 Acetaminophen 325 Mg Tab PO Q4H PRN Pain (Mild 1-3)/fever Apixaban 10 mg 10/28/20 10:00 10/28/20 10:04 Apixaban 5 Mg TabOwn Med PO 10 mg BID VICK Administration Guaifenesin/Codeine Phosphate 5 ml 10/28/20 16:00 10/28/20 16:00 Codeine/Guaifenesin 10-100 Mg/5 Ml Syrup 5 Ml Cup PO 5 ml Q6H VICK Administration Morphine Sulfate 2 mg 10/28/20 08:17 10/28/20 12:54 Morphine 2 Mg/Ml Syringe IVPUSH 2 mg Q2H PRN Administration Pain (severe 7-10) Ondansetron HCl 4 mg 10/28/20 08:17 Ondansetron 4 Mg/2 Ml Sdv IV Q6H PRN Nausea/Vomiting Oxycodone HCl 10 mg 10/28/20 08:17 10/28/20 08:46 Oxycodone 5 Mg Tab PO 10 mg Q4H PRN Administration Pain (moderate 4-6) Discontinued Medications Generic Name Dose Route Start Last Admin Trade Name Freq PRN Reason Stop Dose Admin Sodium Chloride 1,000 mls @ 1,000 mls/hr 10/28/20 04:47 10/28/20 04:56 Normal Saline IV 10/28/20 05:46 1,000 mls/hr .BOLUS ONE Administration Iopamidol 100 ml 10/28/20 05:48 10/28/20 05:49 Iopamidol 755 Mg/Ml 100 Ml Bottle IVPUSH 10/28/20 05:49 100 ml ONETIME ONE Administration Ketorolac Tromethamine 30 mg 10/28/20 15:35 10/28/20 16:00 Ketorolac 30 Mg/Ml Sdv IVPUSH 10/28/20 15:36 30 mg ONETIME ONE Administration Morphine Sulfate 4 mg 10/28/20 04:44 10/28/20 04:56 Morphine 4 Mg/Ml Vial IVPUSH 10/28/20 04:45 4 mg ONETIME ONE Administration Morphine Sulfate 4 mg 10/28/20 06:13 10/28/20 06:16 Morphine 4 Mg/Ml Vial IVPUSH 10/28/20 06:14 4 mg ONETIME ONE Administration Non-Formulary Medication 5 mg 10/28/20 08:15 10/28/20 12:30 Apixaban [Eliquis] PO Not Given BID VICK Ondansetron HCl 4 mg 10/28/20 04:44 10/28/20 04:56 Ondansetron 4 Mg/2 Ml Sdv IVPUSH 10/28/20 04:45 4 mg NOW STA Administration - Radiology Interpretation Free Text/Narrative:: CTA Chest, Abd/Pelvis with contrast: Similar size and extent of known pulmonary emboli. Right ventricular enlargement raises concern for a component of right heart strain. Interval development of wedge-shaped peripheral consolidation, adjacent groundglass opacity in the right middle and right lower lobes most likely secondary to evolving pulmonary infarcts and mild adjacent alveolar hemorrhage. Clinical correlation is recommended. There is trace right pleural effusion. No acute or inflammatory findings identified in the abdomen or pelvis. The patients reported right upper quadrant pain may potentially be related to the adjacent pulmonary infarcts in the right lower love and right middle lobe which extend tot he pleural surface in conjunction with a small right pleural effusion. 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 CT Results Date: 10/28/20 CT Results Time: 07:15 - Re-Assessments/Exams Free Text/Narrative Re-Assessment/Exam: 10/28/20 05:00 This patient has mild elevation of wbc, increased in pain, tenderness to the RUQ. I called [facility] film room and reviewed patient CT to see if appendix, RUQ was included on CTA chest ct earlier. It was not visible. The patient has increased pain, doubled CRP, drop in hgb, increased shortness of breath. While is oxygen saturation is 98% on RA and his BP is 133/77, he is tachycardic rate of 104 on exam. I wll repeat the CTA of the chest while already CT the abd/pelvis due to his symptoms and lab data. I have discussed with the patient the risk of CT with IV contrast in 24 hours. I explained in great detail the risks vs benefits of these tests. The patient reports that he is in a lot of pain and has agreed to have the CTs done. He is fully aware of the risks and has accepted them. Patient reports not having an BM since last ER visit, so denies any blood in stool. 10/28/20 07:[address] results. Discussed patient results with him. I then called and spoke to hospitalist at [facility] Dr. Anthony about this patient and his results. He reports that with no elevated troponin, no heart strain. He reports there is no change in size of the PE. He reports with this patient, it would be treating the pain only at this time and continue the Eliquis. He reports that his anemia appears chronic and not acute. As patient does not have blood in bowels and has not been coughing blood. He reports could admit for pain control, repeat labs tomorrow to ensure hgb does not drop and he does not start coughing blood. He reports can order some iron labs and have PCP follow those. I will admit the patient for pain control of PE. The plan will be to get better control of pain, and discharge home tomorrow morning as long as labs remain unremarkable and patient stays hemodynamically stable. I then discussed with the patient and he agrees to the admit. Departure - Departure Time of Disposition: 08:00 Disposition: Refer to Observation Condition: Fair Clinical Impression: Pulmonary emboli Qualifiers: Pulmonary embolism type: multiple subsegmental (without acute cor pulmonale) Qualified Code(s): I26.94 - Multiple subsegmental pulmonary emboli without acute cor pulmonale - Discharge Information *PRESCRIPTION DRUG MONITORING PROGRAM REVIEWED*: Not Applicable *COPY OF PRESCRIPTION DRUG MONITORING REPORT IN PATIENT SUSANA: Not Applicable Sepsis Event Note (ED) - Evaluation Sepsis Screening Result: No Definite Risk - Focused Exam Vital Signs: Vital Signs Pulse Resp BP Pulse Ox 10/28/20 06:19 100 18 128/70 99 - My Orders Last 24 Hours: My Active Orders 10/28/20 04:57 Abdomen Pelvis w Cont [CT] Stat 10/28/20 04:59 Ang Chest [CT] Stat - Assessment/Plan Last 24 Hours: My Active Orders 10/28/20 04:57 Abdomen Pelvis w Cont [CT] Stat 10/28/20 04:59 Ang Chest [CT] Stat Plan: PLEASE SEE RN NOTE FOR PFSH PLEASE USE ER H&P ADMIT H&P
[2020-10-28] MEDS ORDERED: Iopamidol 755 Mg/ML 100 ML Bottle IVPUSH ONE (05:48)
[2020-10-28] MEDS ORDERED: Non-Formulary Medication 1 Each (Apixaban [Eliquis] 5 MG Tablet) PO SCH (08:15)
[2020-10-28] MEDS ORDERED: Ondansetron 4 MG/2 ML SDV IV PRN (08:17)
[2020-10-28] MEDS ORDERED: Acetaminophen 325 MG Tab PO PRN (08:17)
[2020-10-28] MEDS: oxyCODONE 5 MG Tab PO PRN ×3 (08:46→22:03)
[2020-10-28] MEDS: APIXABAN 5 MG PO SCH ×2 (10:04→19:35)
[2020-10-28] MEDS: Morphine 2 MG/ML SYRINGE IVPUSH PRN ×2 (10:10→12:54)
[2020-10-28] MEDS ORDERED: Ketorolac 30 MG/ML SDV IVPUSH ONE (15:35)
--- NOTE | 2020-10-28 15:35 | PCM.SN.2 ---
- Free Text/Narrative Note: 10/28/20 5045 RN reports patient has coughed up several small bright red blood clots. The patient reports Morphine is helping but not the Percocet. Repeated hgb and it is 8.9 the same. Patient vital signs stable. I called and spoke to Dr. Riggs hospitalist at [facility]. He reports he would expect this with the infarctions. He reports no changes in treatment. He reports can give Toradol, just be careful due to bleeding. He reports patient anemia is chronic and could be from his hernia which needs out patient followup. He reports can give IRON every other day. He reports can also give a cough suppresent as well. He reports continue with plan to admit and discharge tomorrow if hemodynamically stable. He reports if patient becomes unstable vitals then may transfer then. Discussed with patient.
[2020-10-28] MEDS: Codeine/guaiFENesin 10-100 MG/5 ML Syrup 5 ML Cup PO SCH ×2 (16:00→22:03)
[2020-10-29] MEDS: oxyCODONE 5 MG Tab PO PRN ×5 (02:14→23:34)
[2020-10-29] MEDS: Codeine/guaiFENesin 10-100 MG/5 ML Syrup 5 ML Cup PO SCH ×4 (04:09→21:55)
[2020-10-29 07:39] LABS: CHLORIDE,CL 101 mEq/L (98-106); SODIUM,NA 137 mEq/L (136-145)
[2020-10-29] MEDS ORDERED: Ferrous Sulfate 324 MG Tab.EC PO SCH ×2 (08:00→12:00)
[2020-10-29] MEDS: APIXABAN 5 MG PO SCH ×2 (08:03→19:55)
[2020-10-29] MEDS: Morphine 2 MG/ML SYRINGE IVPUSH PRN (08:29)
--- NOTE | 2020-10-29 10:23 | PCM.PN ---
- General Info Date of Service: 10/29/20 Functional Status: Reports: Pain Controlled (pain is much better currently), Tolerating Diet, Ambulating (got up to the bathroom), Urinating - Review of Systems General: Reports: No Symptoms HEENT: Reports: No Symptoms Pulmonary: Reports: Shortness of Breath, Pleuritic Chest Pain, Cough, Hemoptysis Cardiovascular: Reports: No Symptoms Gastrointestinal: Reports: No Symptoms Genitourinary: Reports: No Symptoms Musculoskeletal: Reports: No Symptoms Skin: Reports: No Symptoms Neurological: Reports: No Symptoms Psychiatric: Reports: No Symptoms - Patient Data Vitals - Most Recent: Last Vital Signs Temp 99.2 F 10/29/20 07:41 Pulse 97 10/29/20 07:41 Resp 18 10/29/20 07:41 BP 137/77 10/29/20 07:41 Pulse Ox 96 10/29/20 07:41 Weight - Most Recent: 180 lb Lab Results Last 24 Hours: Laboratory Results - last 24 hr 10/28/20 10/29/20 10/29/20 Range/Units 13:24 05:00 05:00 WBC 8.7 (4.0-11.0) 10^3/uL RBC 3.96 L (4.50-6.00) x10^6/uL Hgb 8.9 L 8.3 L (14.0-18.0) g/dL Hct 30.5 L 28.0 L (42.0-52.0) % MCV 70.7 L (83.0-97.0) fL MCH 21.0 L (27.0-32.0) pg MCHC 29.6 L (32.0-36.0) g/dL RDW Coeff of Christine 15.7 H (11.0-15.0) % Plt Count 264 (150-400) 10^3/uL Immature Gran % (Auto) 0.2 (0.0-4.9) % Neut % (Auto) 64.7 (41-71) % Lymph % (Auto) 18.6 L (24-44) % [place] % (Auto) 13.3 H (0-10) % Eos % (Auto) 2.9 (0-6) % Baso % (Auto) 0.3 (0-1) % Neut # (Auto) 5.62 (1.80-8.00) x10^3/uL Lymph # (Auto) 1.62 (0.60-5.00) 10^3/uL [place] # (Auto) 1.16 (0.00-1.50) 10^3/uL Eos # (Auto) 0.25 (0.00-1.50) 10^3/uL Baso # (Auto) 0.03 (0.00-0.50) 10^3/uL Immature Gran # (Auto) 0.02 (0.00-0.49) 10^3/uL Sodium 137 (136-145) mEq/L Potassium 4.6 (3.5-5.0) mEq/L Chloride 101 (98-106) mEq/L Carbon Dioxide 31 (21-32) mmol/L BUN 15 (7-18) mg/dL Creatinine 1.1 (0.7-1.3) mg/dL Est Cr Clr Drug Dosing 84.64 mL/min Estimated GFR (MDRD) > 60 (>=60) mL/min Glucose 102 H (75-99) mg/dL Calcium 8.6 (8.4-10.1) mg/dL Troponin I (0.00-0.06) ng/mL 10/29/20 Range/Units 05:11 WBC (4.0-11.0) 10^3/uL RBC (4.50-6.00) x10^6/uL Hgb (14.0-18.0) g/dL Hct (42.0-52.0) % MCV (83.0-97.0) fL MCH (27.0-32.0) pg MCHC (32.0-36.0) g/dL RDW Coeff of Christine (11.0-15.0) % Plt Count (150-400) 10^3/uL Immature Gran % (Auto) (0.0-4.9) % Neut % (Auto) (41-71) % Lymph % (Auto) (24-44) % [place] % (Auto) (0-10) % Eos % (Auto) (0-6) % Baso % (Auto) (0-1) % Neut # (Auto) (1.80-8.00) x10^3/uL Lymph # (Auto) (0.60-5.00) 10^3/uL [place] # (Auto) (0.00-1.50) 10^3/uL Eos # (Auto) (0.00-1.50) 10^3/uL Baso # (Auto) (0.00-0.50) 10^3/uL Immature Gran # (Auto) (0.00-0.49) 10^3/uL Sodium (136-145) mEq/L Potassium (3.5-5.0) mEq/L Chloride (98-106) mEq/L Carbon Dioxide (21-32) mmol/L BUN (7-18) mg/dL Creatinine (0.7-1.3) mg/dL Est Cr Clr Drug Dosing mL/min Estimated GFR (MDRD) (>=60) mL/min Glucose (75-99) mg/dL Calcium (8.4-10.1) mg/dL Troponin I < 0.017 (0.00-0.06) ng/mL Med Orders - Current: Current Medications Acetaminophen (Acetaminophen 325 Mg Tab) 650 mg PO Q4H PRN PRN Reason: Pain (Mild 1-3)/fever Apixaban (Apixaban 5 Mg TabOwn Med) 10 mg PO BID [facility] Last Admin: 10/29/20 08:03 Dose: 10 mg Documented by: Ferrous Sulfate (Ferrous Sulfate 324 Mg Tab.Ec) 324 mg PO WITHBREAKFAST [facility] Guaifenesin/Codeine Phosphate (Codeine/Guaifenesin 10-100 Mg/5 Ml Syrup 5 Ml Cup) 5 ml PO Q6H [facility] Last Admin: 10/29/20 04:09 Dose: 5 ml Documented by: Ondansetron HCl (Ondansetron 4 Mg/2 Ml Sdv) 4 mg IV Q6H PRN PRN Reason: Nausea/Vomiting Oxycodone HCl (Oxycodone 5 Mg Tab) 10 mg PO Q4H PRN PRN Reason: Pain (moderate 4-6) Last Admin: 10/29/20 06:17 Dose: 10 mg Documented by: Discontinued Medications Sodium Chloride (Normal Saline) 1,000 mls @ 1,000 mls/hr IV .BOLUS ONE Stop: 10/28/20 05:46 Last Admin: 10/28/20 04:56 Dose: 1,000 mls/hr Documented by: Iopamidol (Iopamidol 755 Mg/Ml 100 Ml Bottle) 100 ml IVPUSH ONETIME ONE Stop: 10/28/20 05:49 Last Admin: 10/28/20 05:49 Dose: 100 ml Documented by: Ketorolac Tromethamine (Ketorolac 30 Mg/Ml Sdv) 30 mg IVPUSH ONETIME ONE Stop: 10/28/20 15:36 Last Admin: 10/28/20 16:00 Dose: 30 mg Documented by: Morphine Sulfate (Morphine 4 Mg/Ml Vial) 4 mg IVPUSH ONETIME ONE Stop: 10/28/20 04:45 Last Admin: 10/28/20 04:56 Dose: 4 mg Documented by: Morphine Sulfate (Morphine 4 Mg/Ml Vial) 4 mg IVPUSH ONETIME ONE Stop: 10/28/20 06:14 Last Admin: 10/28/20 06:16 Dose: 4 mg Documented by: Morphine Sulfate (Morphine 2 Mg/Ml Syringe) 2 mg IVPUSH Q2H PRN PRN Reason: Pain (severe 7-10) Last Admin: 10/29/20 08:29 Dose: 2 mg Documented by: Non-Formulary Medication (Apixaban [Eliquis]) 5 mg PO BID [facility] Last Admin: 10/28/20 12:30 Dose: Not Given Documented by: Ondansetron HCl (Ondansetron 4 Mg/2 Ml Sdv) 4 mg IVPUSH NOW STA Stop: 10/28/20 04:45 Last Admin: 10/28/20 04:56 Dose: 4 mg Documented by: - Exam General: Alert, Oriented, Cooperative, No Acute Distress Neck: Supple, Trachea Midline, No JVD Lungs: Clear to Auscultation, Normal Respiratory Effort Cardiovascular: Regular Rate, Regular Rhythm GI/Abdominal Exam: Soft, Non-Tender, No Organomegaly Back Exam: Normal Inspection, Full Range of Motion Extremities: Normal Inspection, Normal Range of Motion, Non-Tender, No Pedal Edema, Normal Capillary Refill Peripheral Pulses: 2+: Radial (L), Radial (R), Posterior Tibial (L), Posterior Tibial (R) Skin: Warm, Dry, Intact Neurological: No New Focal Deficit, Normal Gait, Normal Speech Psy/Mental Status: Alert, Normal Affect, Normal Mood - Patient Data Lab Results Last 24 hrs: Laboratory Results - last 24 hr 10/28/20 10/29/20 10/29/20 Range/Units 13:24 05:00 05:00 WBC 8.7 (4.0-11.0) 10^3/uL RBC 3.96 L (4.50-6.00) x10^6/uL Hgb 8.9 L 8.3 L (14.0-18.0) g/dL Hct 30.5 L 28.0 L (42.0-52.0) % MCV 70.7 L (83.0-97.0) fL MCH 21.0 L (27.0-32.0) pg MCHC 29.6 L (32.0-36.0) g/dL RDW Coeff of Christine 15.7 H (11.0-15.0) % Plt Count 264 (150-400) 10^3/uL Immature Gran % (Auto) 0.2 (0.0-4.9) % Neut % (Auto) 64.7 (41-71) % Lymph % (Auto) 18.6 L (24-44) % [place] % (Auto) 13.3 H (0-10) % Eos % (Auto) 2.9 (0-6) % Baso % (Auto) 0.3 (0-1) % Neut # (Auto) 5.62 (1.80-8.00) x10^3/uL Lymph # (Auto) 1.62 (0.60-5.00) 10^3/uL [place] # (Auto) 1.16 (0.00-1.50) 10^3/uL Eos # (Auto) 0.25 (0.00-1.50) 10^3/uL Baso # (Auto) 0.03 (0.00-0.50) 10^3/uL Immature Gran # (Auto) 0.02 (0.00-0.49) 10^3/uL Sodium 137 (136-145) mEq/L Potassium 4.6 (3.5-5.0) mEq/L Chloride 101 (98-106) mEq/L Carbon Dioxide 31 (21-32) mmol/L BUN 15 (7-18) mg/dL Creatinine 1.1 (0.7-1.3) mg/dL Est Cr Clr Drug Dosing 84.64 mL/min Estimated GFR (MDRD) > 60 (>=60) mL/min Glucose 102 H (75-99) mg/dL Calcium 8.6 (8.4-10.1) mg/dL Troponin I (0.00-0.06) ng/mL 10/29/20 Range/Units 05:11 WBC (4.0-11.0) 10^3/uL RBC (4.50-6.00) x10^6/uL Hgb (14.0-18.0) g/dL Hct (42.0-52.0) % MCV (83.0-97.0) fL MCH (27.0-32.0) pg MCHC (32.0-36.0) g/dL RDW Coeff of Christine (11.0-15.0) % Plt Count (150-400) 10^3/uL Immature Gran % (Auto) (0.0-4.9) % Neut % (Auto) (41-71) % Lymph % (Auto) (24-44) % [place] % (Auto) (0-10) % Eos % (Auto) (0-6) % Baso % (Auto) (0-1) % Neut # (Auto) (1.80-8.00) x10^3/uL Lymph # (Auto) (0.60-5.00) 10^3/uL [place] # (Auto) (0.00-1.50) 10^3/uL Eos # (Auto) (0.00-1.50) 10^3/uL Baso # (Auto) (0.00-0.50) 10^3/uL Immature Gran # (Auto) (0.00-0.49) 10^3/uL Sodium (136-145) mEq/L Potassium (3.5-5.0) mEq/L Chloride (98-106) mEq/L Carbon Dioxide (21-32) mmol/L BUN (7-18) mg/dL Creatinine (0.7-1.3) mg/dL Est Cr Clr Drug Dosing mL/min Estimated GFR (MDRD) (>=60) mL/min Glucose (75-99) mg/dL Calcium (8.4-10.1) mg/dL Troponin I < 0.017 (0.00-0.06) ng/mL Result Diagrams: 10/29/20 05:00 10/29/20 05:00 Sepsis Event Note - Evaluation Sepsis Screening Result: No Definite Risk - Focused Exam Vital Signs: Vital Signs Temp Pulse Resp BP BP Pulse Ox 10/29/20 07:41 99.2 F 97 18 137/77 96 10/29/20 04:00 98.6 F 101 H 16 134/69 92 L 10/29/20 00:00 99.2 F 107 H 20 116/48 L 93 L - Problem List Review Problem List Initiated/Reviewed/Updated: Yes - My Orders Last 24 Hours: My Active Orders 10/28/20 10:00 Apixaban [Eliquis] 10 mg PO BID 10/28/20 16:00 Codeine/guaiFENesin [Robitussin AC] 5 ml PO Q6H 10/29/20 05:00 IRON PNL (FE, TIBC, ERIC, %SAT) [REF] Stat 10/29/20 08:00 Ferrous Sulfate 324 mg PO WITHBREAKFAST 10/30/20 05:00 BASIC METABOLIC PANEL,BMP [CHEM] DAILY CBC WITH AUTO DIFF [HEME] DAILY - Plan Plan:: 10/29/2055 This patient was admitted for PE. See previous notes for history. The patient reports that today he is feeling better. He reports today he can actually lay in bed and lay back. He reports that he feels short of breath, but feels that is improving. Patient reprots his pain is tolerable. Patient has not had Morphine lately, but been getting the Percocet often. I will discontinue his Percocet. Patient hgb yesterday was 8.9, today is 8.3. Patient has not had any more coughing up blood today. Denies bleeding from bowels. His MCV is 70.7, appears chronic anemia. White male, probable iron deficiency due to hernia. He was started on Iron today, Iron labs were ordered and not resulted yet. The patient clinically has improved for his PE. His vital signs are stable. He appears more comfortable today. I will keep patient until tomorrow and redraw labs to recheck the hgb and iron studies. Patient is comfortable with this plan.
[2020-10-30] MEDS: Codeine/guaiFENesin 10-100 MG/5 ML Syrup 5 ML Cup PO SCH (04:12)
[2020-10-30] MEDS: oxyCODONE 5 MG Tab PO PRN ×2 (04:17→08:25)
[2020-10-30 07:43] LABS: CHLORIDE,CL 100 mEq/L (98-106); SODIUM,NA 137 mEq/L (136-145)
[2020-10-30 07:55] VITALS: BP 123/79; PULSE 92
[2020-10-30] MEDS: APIXABAN 5 MG PO SCH (08:07)
--- NOTE | 2020-10-30 10:44 | DISCH ---
ADMISSION DIAGNOSES: 1. Pulmonary embolus. 2. Microcytic anemia. 3. Chronic gastroesophageal reflux disease. DISCHARGE DIAGNOSIS: 1. PULMONARY EMBOLUS. 2. MICROCYTIC ANEMIA. 3. CHRONIC GASTROESOPHAGEAL REFLUX DISEASE. HISTORY: The patient is a 40-year-old otherwise healthy male who presented with acute onset of right-sided chest pain on the 10/27/2020, was seen by Dayanara Mcgee in clinic, diagnosed with pulmonary embolus, and started on Eliquis as an outpatient. He presented back to our facility with ongoing issues of pain and Junior Garcia admitted him for observation for pain control. HOSPITAL COURSE: The patient did well while he was here. His vital signs have been stable. He has not spiked any temps. His sats are in the mid 90s on room air. He has not had any increase in respiratory rate or any hypotension. His pain has been well controlled initially with IV morphine and now with oral oxycodone. He has been initiated on Eliquis at 10 mg twice a day for 2 weeks and then he will decrease his dose to 5 twice a day. He has no known risk factors for the pulmonary emboli. The patient was found on admission to have microcytic anemia. Iron panel is pending. He has not had any occult stools check since being here. It is interesting in that he does state he has had "chronic abdominal issues" and epigastric pain and chronic heartburn. He will need an endoscopy in the near future to elucidate this. For now, he has been started on oral iron replacement, oral Protonix, and Hemoccults will be done at home x3, and we will follow up next week for followup hemoglobin. His hemoglobin was 8.9 on admit, yesterday was 8.3, and today it is 8.4. He is given instructions to notify us if he feels he is having any darker stools or increasing weakness, shortness of breath, etc. At this time, the patient will be discharged on a new prescription for Eliquis, Protonix. He will be started on b.i.d. iron replacement and he will have p.r.n. oxycodone for pain. We will see him back in the clinic in 1 week for followup and discussion of further workup for his anemia. The patient is given instruction on pulmonary emboli and the need for thrombophilia workup in the future once he is off anticoagulation. He understands. COMPLICATIONS: During the stay were none. CONSULTATIONS: None. DISPOSITION: Discharged home. TIGRE/ALISA /[id number]
== END 2020-10-30 10:15 | disposition home or self-care (01) ==
LOC: CC.ED 04:07 → CC.MS 08:00 → UNDOADMOB 08:00 → CC.MS 08:10
PROVIDERS: ADMIT Nurse Practitioner; ATTEND Family Medicine
DX: I26.99 Other pulmonary embolism without acute cor pulmonale (principal); F17.210 Nicotine dependence, cigarettes, uncomplicated; K21.9 Gastro-esophageal reflux disease without esophagitis; D50.9 Iron deficiency anemia, unspecified; Z79.899 Other long term (current) drug therapy
CPT/HCPCS: 36415; 71275; 74177; 80048; 80053; 81001; 82270; 82550; 82728; 83540; 83550; 83605; 83615; 83690; 83735; 84484; 85014; 85018; 85025; 85610; 85730; 86140; 93005; 96374; 96375; 96376; 99285-25; A9270-GY; G0378; J1885; J2270; J2405; J7030; Q9967

== ENCOUNTER → 2020-11-17 | Day surgery (SDC) | payer MEDICAID ==
[~2020-11-17] MED LIST: Ketamine 200 MG/20 ML MDV ONE; Lactated Ringers 1,000 ML IV SCH; Lidocaine 2% 20 ML MDV ONE; Propofol 200 MG/20 ML SDV ONE; fentaNYL 100 MCG/2 ML SDV ONE
[2020-11-17 12:31] VITALS: BP 116/80; PULSE 88
--- NOTE | 2020-11-18 09:18 | OR ---
DATE OF OPERATION: 11/17/2020 PREOPERATIVE DIAGNOSIS: IRON-DEFICIENCY ANEMIA. POSTOPERATIVE DIAGNOSIS: IRON-DEFICIENCY ANEMIA. SURGEON: Junior Mota MD PROCEDURE: ESOPHAGOGASTRODUODENOSCOPY. ANESTHESIA: MAC. COMPLICATIONS: None. SPECIMEN: None. FINDINGS: 1. Full-length EGD. 2. Minimal antral gastritis without bleeding. 3. Large hiatal hernia with potential Rogers's changes. INDICATIONS: The patient is currently anticoagulated for pulmonary embolus of unknown etiology. Due to some chronic epigastric pain and iron deficiency, we proceeded with a diagnostic scope to rule out a malignancy or something pathologic giving him his anemia and contributing to a PE. DESCRIPTION OF PROCEDURE: The patient was prepped and draped, placed in the left lateral decubitus position. A lubricated Olympus gastroscope was inserted over a bit, advanced to the cricopharyngeus area and easily intubated in the esophagus. The esophageal lining was benign until its most distal portion. The patient does have multiple areas of short-segment Rogers's changes associated with a very large hiatal hernia and spontaneous reflux. There were no signs of acute esophagitis, stricturing, or ulceration. The scope was advanced into the stomach, through the pylorus, and into the second portion of the duodenum. This and the duodenal bulb were benign. The scope was brought back into the stomach and retroflexed. A large hiatal hernia could be seen from below. There were no obvious lesions in the fundus or cardia portion of the stomach. Upon straightening, there were some very minimal changes of gastritis in the antrum, but no active bleeding. Air was then suctioned and the scope removed without complication. TIGRE/ALISA /[id number]
== END ==
LOC: CC.SDS 11:06
PROVIDERS: ATTEND Family Medicine
DX: K29.60 Other gastritis without bleeding (principal); K25.9 Gastric ulcer, unspecified as acute or chronic, without hemorrhage or perforation; K44.9 Diaphragmatic hernia without obstruction or gangrene; I26.99 Other pulmonary embolism without acute cor pulmonale; D50.9 Iron deficiency anemia, unspecified; K21.9 Gastro-esophageal reflux disease without esophagitis; E78.00 Pure hypercholesterolemia, unspecified; Z79.899 Other long term (current) drug therapy
CPT/HCPCS: J2704; J3010; J7120

== ENCOUNTER → 2021-05-31 | Day surgery (SDC) | payer BC, MEDICAID ==
[~2021-05-31] MED LIST changes: +Albuterol/Ipratropium 3.0-0.5 MG/3 ML Neb Soln NEB ONE; +Dexamethasone 4 MG/ML SDV ONE; +Glycopyrrolate 0.2 MG/ML 2 ML SDV ONE; +Glycopyrrolate 0.2 MG/ML SDV ONE; +Heparin Sodium 5,000 Units/ML Vial SUBCUT ONE; -Lidocaine 2% 20 ML MDV ONE; +Lidocaine 2% 5 ML SDV ONE; +Midazolam 1 MG/ML 2 ML SDV ONE; +Neostigmine Methylsulfate 10 MG/10 ML MDV ONE; +Ondansetron 4 MG/2 ML SDV IVPUSH PRN; +Ondansetron 4 MG/2 ML SDV ONE; +Rocuronium 50 MG/5 ML Vial ONE; +Sodium Chloride 0.9% 10 ML Syringe FLUSH PRN; +Succinylcholine 200 MG/10 ML MDV ONE; +ceFAZolin 1 GM Vial IVPUSH ONE
[2021-05-31] MEDS: Morphine 2 MG/ML SYRINGE IV PRN ×4 (15:55→23:48)
[2021-05-31] MEDS: Acetaminophen/oxyCODONE 325-5 MG Tab PO PRN ×2 (17:17→21:25)
[2021-06-01] MEDS: Acetaminophen/oxyCODONE 325-5 MG Tab PO PRN (06:13)
[2021-06-01 09:20] VITALS: BP 119/84; PULSE 83
== END | disposition home or self-care (01) ==
LOC: CC.SDS 10:56
PROVIDERS: ATTEND Surgery
DX: K44.9 Diaphragmatic hernia without obstruction or gangrene (principal); F41.9 Anxiety disorder, unspecified; F17.210 Nicotine dependence, cigarettes, uncomplicated; K21.00 Gastro-esophageal reflux disease with esophagitis, without bleeding; Z79.899 Other long term (current) drug therapy; Z98.890 Other specified postprocedural states; Z20.822 Contact with and (suspected) exposure to COVID-19
CPT/HCPCS: A9270-GY; J0330; J1100; J1644; J2250; J2270; J2405; J2704; J2710; J3010; J3490; J7030; J7120; J7620-GY; U0002